=== PATIENT | female | born 1965 | race Hispanic/Latino ===

== ENCOUNTER 2019-07-11 13:37 | Inpatient (IN) | payer MEDICAID, OTHER ==
[~2019-07-11] VITALS: Ht 152.4 cm; Wt 55.5 kg
[2019-07-11] VITALS (10 sets, daily range): BP systolic 99–168; BP diastolic 47–83
[~2019-07-11 13:37] MED LIST: ETOMIDATE 2 MG/ML 10 ML VIAL IVP ONE; SUCCINYLCHOLINE CHLORIDE 20 MG/ML 10 ML VIAL IVP ONE
--- NOTE | 2019-07-11 15:13 | NUR ---
ARRIVAL TO FLOOR ROOM 409/ DIRECT SUPPORT PROFESSIONAL AWARE OF PT ARRIVAL. PT IS AAOX3 DENIES CP DENIES SOB. ARRIVED WITH HEPARIN INFUSING, 12UNITS/55KG = 6.6ML/HR. PT SIGNED CONSENT FOR [facility]. NOTED COMMUNICATING/TUNNELING SACRAL WOUND, PICTURES TAKEN. AWAITING DIRECT SUPPORT PROFESSIONAL FOR GRAPE CRUSHER.
--- NOTE | 2019-07-11 16:00 | NUR ---
MESSAGE SENT TO DR AVILA OF PT ADMISSION TO ROOM
[2019-07-11] MEDS ORDERED: HYDR-3420 PO (16:29)
[2019-07-11] MEDS ORDERED: ATOR10 PO (16:29)
[2019-07-11] MEDS ORDERED: CARV12.511 PO (16:29)
[2019-07-11] MEDS ORDERED: AEC81 PO (16:29)
[2019-07-11] MEDS ORDERED: FURO40TA5 PO (16:29)
[2019-07-11] MEDS ORDERED: CHOL200012 PO (16:29)
[2019-07-11] MEDS ORDERED: SPIR25TA6 PO (16:33)
[2019-07-11] MEDS ORDERED: LISI10TA7 PO (16:33)
[2019-07-11] MEDS ORDERED: LACT1CAP62 PO (16:33)
[2019-07-11] MEDS ORDERED: IOHEXOL 350 MG/ML 100ML INFUS..BTL IV ONE (17:15)
[2019-07-11] MEDS ORDERED: MIDAZOLAM HCL 1 MG/ML 2ML VIAL ONE (17:15)
[2019-07-11] MEDS ORDERED: NITROGLYCERIN 2 MG/VIAL VIAL IV ONE (17:15)
[2019-07-11] MEDS ORDERED: IOHEXOL-350 50ML VIAL IV ONE (17:15)
[2019-07-11] MEDS ORDERED: LIDOCAINE HCL 2% 20ML ONE (17:15)
[2019-07-11] MEDS ORDERED: BIVALIRUDIN 250 MG/VIAL IV ONE (17:19)
--- NOTE | 2019-07-11 17:30 | NUR ---
Osiel WEIR ON FLOOR I TOLD HER PT IS IN ROOM ARRIVAL FROM [facility]
--- NOTE | 2019-07-11 17:42 | NUR ---
DOWN VIA BED TO CUSTOMER ENGINEERING SPECIALIST WITH CUSTOMER ENGINEERING SPECIALIST STAFF
--- NOTE | 2019-07-11 18:07 | NUR ---
HOSPITALIST SERVICE MADE AWARE OF PATIENT ADMISSION, SPOKE WITH CHIO
[2019-07-11] MEDS ORDERED: EPTIFIBATIDE 2 MG/ML 10 ML VIAL IVP ONE (19:03)
[2019-07-11] MEDS ORDERED: ASPIRIN 325MG EC TAB 325 MG TABLET.DR PO ONE (19:04)
[2019-07-11] MEDS ORDERED: PRASUGREL HCL 10 MG TABLET ONE (19:04)
[2019-07-11] MEDS ORDERED: EPTIFIBATIDE 75MG/100ML BOTTLE 100 ML IV ONE (19:10)
[2019-07-11] MEDS ORDERED: SODIUM CHLORIDE 0.9% 1000ML 1,000 ML IV SCH (19:41)
[2019-07-11] MEDS ORDERED: DEXTROSE 50%-WATER 50 ML DISP.SYRIN IV PRN (19:45)
[2019-07-11] MEDS ORDERED: ONDANSETRON HCL 4 MG/2 ML VIAL ONE (19:49)
[2019-07-11] MEDS ORDERED: CARVEDILOL 12.5 MG TABLET PO SCH (21:00)
[2019-07-11] MEDS: INSULIN HUMULIN R 100 UNIT/ML 3ML SQ SCH (21:00)
[2019-07-11] MEDS: HYDRALAZINE HCL 25 MG TABLET PO SCH (21:00)
[2019-07-12] VITALS (15 sets, daily range): BP systolic 121–168; BP diastolic 62–95
[2019-07-12] MEDS: ATORVASTATIN CALCIUM 40 MG TABLET PO SCH ×2 (00:31→22:12)
[2019-07-12] MEDS: HYDRALAZINE HCL 25 MG TABLET PO SCH ×4 (00:32→22:13)
[2019-07-12] MEDS: ONDANSETRON HCL 4 MG/2 ML VIAL IVP PRN ×3 (00:32→22:23)
--- NOTE | 2019-07-12 01:00 | NUR ---
PT C/O CHEST PAIN. NOTIFIED HOSPITALIST SYSTEMS TESTING LABORATORY TECHNICIAN. NEW ORDERS FOR STATE EKG. CARDIAC PANEL. NITRO SL. AND MORPHINE 2MG Q6HRS PRN.
[2019-07-12] MEDS ORDERED: NITROGLYCERIN 0.4 MG SL TAB SL ONE (01:08)
[2019-07-12] MEDS ORDERED: MORPHINE SULFATE 2 MG/ML 1ML SYG ONE (01:09)
--- NOTE | 2019-07-12 01:10 | NUR ---
AT THIS TIME GIVEN NITRO SL AND MORPHINE 2MG PRN. DUE TO CHEST PAIN
[2019-07-12] MEDS ORDERED: NITROGLYCERIN 0.4 MG SL TAB SL PRN (01:15)
[2019-07-12 01:28] LABS: HEMATOCRIT 25.8 % (36-48); MEAN CORPUSCULAR VOLUME 87.2 fL (79-99); PLATELET COUNT (AUTO) 344 K/uL (130-400); RED BLOOD CELL COUNT(AUTO) 2.96 MIL/uL (4.00-5.50); RED CELL DISTRIBUTION WIDTH 20.7 % (11.0-15.5); WHITE BLOOD COUNT (AUTO) 14.9 K/uL (4.8-10.8)
[2019-07-12 01:37] LABS: CREATININE 1.3 mg/dL (0.5-1.5); POTASSIUM 3.7 mmol/L (3.5-5.1)
[2019-07-12 01:42] LABS: INR 1.36 (0.85-1.15); PARTIAL THROMBOPLASTIN TIME 39.4 SEC (26.3-35.5); PROTHROMBIN TIME 14.5 SEC (9.6-11.6)
[2019-07-12 02:03] LABS: B-TYPE NATRIURETIC PEPTIDE 4990 pg/mL (0-100); TROPONIN I 1.86 ng/mL (0.00-0.06)
--- NOTE | 2019-07-12 02:15 | NUR ---
NOTIFIED CHIO LEDESMA REGARDING TROP LEVEL OF 1.86 AND PT IS NO LONGER COMPLAINING OF CHEST PAIN. NEW ORDER FOR TROPS Q6HRS X3. PT CURRENTLY IN BED, EYES CLOSED. NO DISTRESS NOTED.
[2019-07-12] MEDS: INSULIN HUMULIN R 100 UNIT/ML 3ML SQ SCH ×4 (07:16→21:00)
[2019-07-12 08:02] LABS: TROPONIN I 1.98 ng/mL (0.00-0.06)
--- NOTE | 2019-07-12 08:19 | NUR ---
DR. LOPEZ MADE AWARE OF PENDING CONSULT
[2019-07-12] MEDS ORDERED: FUROSEMIDE 40 MG TABLET PO SCH (09:00)
[2019-07-12] MEDS ORDERED: FUROSEMIDE 10 MG/ML 4ML VIAL IV SCH (09:00)
[2019-07-12] MEDS ORDERED: LISINOPRIL 10 MG TABLET PO SCH ×2 (09:00)
[2019-07-12] MEDS: LISINOPRIL 20 MG TABLET PO SCH (09:28)
[2019-07-12] MEDS: ASPIRIN 81MG TAB.CHEW PO SCH (09:29)
[2019-07-12] MEDS: PRASUGREL HCL 10 MG TABLET PO SCH (09:29)
[2019-07-12] MEDS: PANTOPRAZOLE SODIUM 40 MG TABLET.DR PO SCH (09:29)
--- NOTE | 2019-07-12 11:03 | NUR ---
RD NOTIFICATION - NON HEALING PRESSURE ULCER Pt admitted for N Stemi. History of CHF, CKDIII, DM, CAD. 75gm CC diet order in place. No report of GI distress. Pt is s/p thoracentesis, s/p L-heart cath, as per EMR. Pt with Stg 3 R-Buttock Pressure ulcer. 1) Recommend Heart healthy Diet modification 2) Recommend 1500mL Fluid Restriction 3) Recommend Chapo BID, 500mg Ascorbic Acid, 220mG Zinc Sulfate for wound healing support 4) 60mL Promod QD secondary to increased protein needs RD to continue to monitor. Please notify as additional nutrition concerns arise. Thank you. Addendum: 07/12/19 at [address] RD Amended: Links added.
[2019-07-12] MEDS: MORPHINE SULFATE 2 MG/ML 1ML SYG IVP PRN (12:40)
--- NOTE | 2019-07-12 13:28 | NUR ---
[facility] consult Patient assessed as ordered. Patient reports ulcer occurred shortly after left hip surgery about 4 weeks ago. Surgical consult recommended and wound care recommendations submitted. Addendum: 07/12/19 at 1330 by ADRIANA GONZALEZ RN/ZEINA Amended: Links added.
[2019-07-12] MEDS ORDERED: VANCOMYCIN PROTOCOL PER PHARMACY IV PRN (16:00)
[2019-07-12] MEDS ORDERED: VANCOMYCIN 1GM+NS 250ML 250 ML IV SCH (16:00)
[2019-07-12] MEDS ORDERED: VANCOMYCIN 500MG+NS 100ML 100 ML IV SCH (16:30)
[2019-07-12 16:37] LABS: RETICULOCYTE % (AUTO) 1.88 % (0.42-2.23)
[2019-07-12 16:52] LABS: % IRON SATURATION 15.5 % (22-44)
[2019-07-12] MEDS ORDERED: DILTIAZEM HCL 120 MG CAP.SR.24H PO SCH (17:15)
[2019-07-12] MEDS ORDERED: TAMSULOSIN HCL 0.4 MG CAP.ER.24H PO SCH (17:15)
[2019-07-12] MEDS ORDERED: EPOETIN ALFA 10,000 UNIT/ML VIAL SQ SCH (17:15)
[2019-07-12 17:20] LABS: THYROID STIMULATING HORMONE 1.67 uIU/mL (0.36-3.74)
[2019-07-12] MEDS ORDERED: COMPOUND IV MISC 1 EACH IVSOLN MISC PRN (17:30)
[2019-07-12] MEDS: IRON SUCROSE COMPLEX 100 MG in SODIUM CHLORIDE 0.9% 50 ML IV SCH (18:26)
[2019-07-12] MEDS: MEROPENEM 500 MG VIAL IV SCH (18:26)
[2019-07-12] MEDS ORDERED: VANCOMYCIN 1GM+NS 250ML 250 ML IV ONE (21:46)
--- NOTE | 2019-07-12 21:49 | NUR ---
PICC LINE NOT INSERETED BECAUSE PATIENT IS ON PROCRIT AND WILL DEVELOPED A CLOT Addendum: 07/12/19 at 2153 by AHMET ESTES RN PICC LINE NOT INSERTED BECAUSE PATIENT IS ON PROCRIT AND WILL DEVELOPED A CLOT
[2019-07-12] MEDS: CARVEDILOL 25 MG TABLET PO SCH (22:12)
[2019-07-13] VITALS (7 sets, daily range): BP systolic 134–154; BP diastolic 51–84
[2019-07-13] MEDS ORDERED: VANCOMYCIN 1GM+NS 250ML 250 ML IV ONE (01:05)
[2019-07-13] MEDS: MEROPENEM 500 MG VIAL IV SCH ×2 (01:11→09:15)
[2019-07-13 07:04] LABS: BASOPHILS % (AUTO) 0.2 % (0.0-5.0); HEMATOCRIT 26.6 % (36-48); LYMPHOCYTES % (AUTO) 14.3 % (21.0-51.0); MEAN CORPUSCULAR HEMOGLOBIN 26.9 pg (27.0-33.0); MEAN CORPUSCULAR HGB CONC 31.2 g/dL (32.0-36.0); MEAN CORPUSCULAR VOLUME 86.4 fL (79-99); MONOCYTES % (AUTO) 5.4 % (3.0-13.0); NEUTROPHILS % (AUTO) 77.6 % (40.0-77.0); PLATELET COUNT (AUTO) 298 K/uL (130-400); RED BLOOD CELL COUNT(AUTO) 3.08 MIL/uL (4.00-5.50); RED CELL DISTRIBUTION WIDTH 21.2 % (11.0-15.5); WHITE BLOOD COUNT (AUTO) 11.3 K/uL (4.8-10.8)
[2019-07-13] MEDS: INSULIN HUMULIN R 100 UNIT/ML 3ML SQ SCH ×3 (07:22→21:00)
[2019-07-13 07:33] LABS: ALBUMIN 1.7 g/dL (3.5-5.0); BILIRUBIN,TOTAL 0.4 mg/dL (0.2-1.0); CREATININE 1.8 mg/dL (0.5-1.5); CRP QUANTITATIVE 130.5 mg/L (0.00-9.0); MAGNESIUM 2.1 mg/dL (1.80-2.40); PHOSPHORUS 4.8 mg/dL (2.5-4.9); POTASSIUM 3.5 mmol/L (3.5-5.1); TOTAL PROTEIN, SERUM 5.8 g/dL (6.0-8.3)
[2019-07-13 08:09] LABS: ERYTHROCYTE SEDIMENTATION RATE 65 MM/HR (0-30)
[2019-07-13] MEDS: IRON SUCROSE COMPLEX 100 MG in SODIUM CHLORIDE 0.9% 50 ML IV SCH (09:14)
[2019-07-13] MEDS: ASPIRIN 81MG TAB.CHEW PO SCH (09:14)
[2019-07-13] MEDS: ONDANSETRON HCL 4 MG/2 ML VIAL IVP PRN (09:14)
[2019-07-13] MEDS: CARVEDILOL 25 MG TABLET PO SCH ×2 (09:14→21:09)
[2019-07-13] MEDS: FUROSEMIDE 40 MG TABLET PO SCH (09:15)
[2019-07-13] MEDS: HYDRALAZINE HCL 25 MG TABLET PO SCH ×3 (09:15→21:09)
[2019-07-13] MEDS: LISINOPRIL 20 MG TABLET PO SCH (09:15)
[2019-07-13] MEDS: PANTOPRAZOLE SODIUM 40 MG TABLET.DR PO SCH (09:15)
[2019-07-13] MEDS: MORPHINE SULFATE 2 MG/ML 1ML SYG IVP PRN (09:16)
[2019-07-13] MEDS: SODIUM HYPOCHLORITE 0.25% [HALF STRENGTH] 473 ML TOPICAL SOLN TP SCH (09:17)
[2019-07-13] MEDS: PRASUGREL HCL 10 MG TABLET PO SCH (09:19)
[2019-07-13] MEDS: VANCOMYCIN 500MG+NS 100ML 100 ML IV SCH (13:23)
--- NOTE | 2019-07-13 18:30 | NUR ---
austin note met with patient and resides with son kaelyn and daughter in law, is currently not able to ambulate , has walker and cane but hardly uses. needs assistance, and daughter in law asists. is pending approval for [facility] coverage for assistance. was at [facility] and had 2 surgeries. and was transferred to this facililty. dc plan is back to home at mo. family to assist. provided with community resource packet, and rx assist cards. Addendum: 07/13/19 at 1901 by AASHISH CROUCH CM Amended: Links added.
[2019-07-13] MEDS: ATORVASTATIN CALCIUM 40 MG TABLET PO SCH (21:08)
[2019-07-14] MEDS: MEROPENEM 500 MG VIAL IV SCH ×2 (01:00→08:47)
[2019-07-14] MEDS: VANCOMYCIN 500MG+NS 100ML 100 ML IV SCH (01:01)
[2019-07-14 04:00] VITALS: BP 145/56
[2019-07-14 05:11] LABS: BASOPHILS % (AUTO) 0.3 % (0.0-5.0); EOSINOPHILS % (AUTO) 13.7 % (0.0-8.0); HEMATOCRIT 26.5 % (36-48); LYMPHOCYTES % (AUTO) 17.4 % (21.0-51.0); MEAN CORPUSCULAR HEMOGLOBIN 26.9 pg (27.0-33.0); MEAN CORPUSCULAR HGB CONC 31.3 g/dL (32.0-36.0); NEUTROPHILS % (AUTO) 61.1 % (40.0-77.0); PLATELET COUNT (AUTO) 309 K/uL (130-400); RED BLOOD CELL COUNT(AUTO) 3.08 MIL/uL (4.00-5.50); RED CELL DISTRIBUTION WIDTH 21.2 % (11.0-15.5); WHITE BLOOD COUNT (AUTO) 12.7 K/uL (4.8-10.8)
[2019-07-14 06:08] LABS: ALBUMIN 1.5 g/dL (3.5-5.0); ASPARTATE AMINOTRANSFERASE 14 U/L (10-37); BILIRUBIN,TOTAL 0.3 mg/dL (0.2-1.0); CARBON DIOXIDE 23 mmol/L (21-32); CHLORIDE 109 mmol/L (101-111); CREATININE 2.1 mg/dL (0.5-1.5); GLOMERULAR FILTR. RATE CALC 26 mL/min (>60); GLUCOSE,RANDOM 59 mg/dL (70-105); POTASSIUM 3.2 mmol/L (3.5-5.1); SODIUM SERUM 143 mmol/L (136-145); TOTAL PROTEIN, SERUM 5.4 g/dL (6.0-8.3); UREA NITROGEN, BLOOD 36 mg/dL (7-18)
[2019-07-14 06:10] LABS: ALANINE AMINOTRANSFERASE < 6 U/L (12-78)
[2019-07-14] MEDS: INSULIN HUMULIN R 100 UNIT/ML 3ML SQ SCH ×4 (06:40→21:00)
[2019-07-14 07:30] VITALS: BP 131/62
[2019-07-14 08:43] LABS: CREATINE KINASE, TOTAL 16 U/L (21-232); MYOGLOBIN 55 ng/mL (10-92)
[2019-07-14] MEDS: HYDRALAZINE HCL 25 MG TABLET PO SCH ×3 (08:46→21:24)
[2019-07-14] MEDS: LISINOPRIL 20 MG TABLET PO SCH (08:46)
[2019-07-14] MEDS: IRON SUCROSE COMPLEX 100 MG in SODIUM CHLORIDE 0.9% 50 ML IV SCH (08:46)
[2019-07-14] MEDS: PRASUGREL HCL 10 MG TABLET PO SCH (08:46)
[2019-07-14] MEDS: ASPIRIN 81MG TAB.CHEW PO SCH (08:47)
[2019-07-14] MEDS: PANTOPRAZOLE SODIUM 40 MG TABLET.DR PO SCH (08:47)
[2019-07-14] MEDS: FUROSEMIDE 40 MG TABLET PO SCH (08:47)
[2019-07-14] MEDS: CARVEDILOL 25 MG TABLET PO SCH ×2 (09:00→21:23)
[2019-07-14 11:30] VITALS: BP 124/67
[2019-07-14] MEDS: ZOSYN 3.375GM+NS 50ML 50 ML IV SCH ×2 (12:09→18:14)
[2019-07-14] MEDS: SODIUM HYPOCHLORITE 0.25% [HALF STRENGTH] 473 ML TOPICAL SOLN TP SCH (12:10)
[2019-07-14 15:30] VITALS: BP 145/61
[2019-07-14 20:21] VITALS: BP 146/69
[2019-07-14] MEDS: ATORVASTATIN CALCIUM 40 MG TABLET PO SCH (21:23)
[2019-07-14] MEDS: MORPHINE SULFATE 2 MG/ML 1ML SYG IVP PRN (21:31)
[2019-07-14 23:26] VITALS: BP 143/63
[2019-07-15] MEDS: ZOSYN 3.375GM+NS 50ML 50 ML IV SCH ×3 (01:47→18:32)
[2019-07-15 03:31] VITALS: BP 134/53
[2019-07-15 05:46] LABS: BASOPHILS % (AUTO) 0.3 % (0.0-5.0); EOSINOPHILS % (AUTO) 15.8 % (0.0-8.0); HEMATOCRIT 25.6 % (36-48); LYMPHOCYTES % (AUTO) 15.5 % (21.0-51.0); MEAN CORPUSCULAR HEMOGLOBIN 26.8 pg (27.0-33.0); MEAN CORPUSCULAR HGB CONC 31.3 g/dL (32.0-36.0); MEAN CORPUSCULAR VOLUME 85.9 fL (79-99); MONOCYTES % (AUTO) 6.1 % (3.0-13.0); NEUTROPHILS % (AUTO) 61.8 % (40.0-77.0); NUCLEATED RED BLOOD CELLS 0.2 % (0.0-0.19); PLATELET COUNT (AUTO) 309 K/uL (130-400); RED BLOOD CELL COUNT(AUTO) 2.98 MIL/uL (4.00-5.50); WHITE BLOOD COUNT (AUTO) 12.3 K/uL (4.8-10.8)
[2019-07-15 06:05] LABS: ALBUMIN 1.5 g/dL (3.5-5.0); ASPARTATE AMINOTRANSFERASE 13 U/L (10-37); BILIRUBIN,TOTAL 0.3 mg/dL (0.2-1.0); CARBON DIOXIDE 24 mmol/L (21-32); CHLORIDE 106 mmol/L (101-111); CREATININE 2.4 mg/dL (0.5-1.5); GLOMERULAR FILTR. RATE CALC 22 mL/min (>60); GLUCOSE,RANDOM 100 mg/dL (70-105); POTASSIUM 3.5 mmol/L (3.5-5.1); SODIUM SERUM 140 mmol/L (136-145); TOTAL PROTEIN, SERUM 5.3 g/dL (6.0-8.3); UREA NITROGEN, BLOOD 38 mg/dL (7-18)
[2019-07-15 06:07] LABS: ALANINE AMINOTRANSFERASE < 6 U/L (12-78)
[2019-07-15] MEDS: INSULIN HUMULIN R 100 UNIT/ML 3ML SQ SCH ×4 (06:41→20:52)
[2019-07-15 07:55] VITALS: BP 140/61
[2019-07-15] MEDS: SODIUM HYPOCHLORITE 0.25% [HALF STRENGTH] 473 ML TOPICAL SOLN TP SCH (09:00)
[2019-07-15] MEDS: LISINOPRIL 20 MG TABLET PO SCH (09:54)
[2019-07-15] MEDS: PRASUGREL HCL 10 MG TABLET PO SCH (09:54)
[2019-07-15] MEDS: ASPIRIN 81MG TAB.CHEW PO SCH (09:54)
[2019-07-15] MEDS: PANTOPRAZOLE SODIUM 40 MG TABLET.DR PO SCH (09:54)
[2019-07-15] MEDS: HYDRALAZINE HCL 25 MG TABLET PO SCH ×3 (09:54→21:05)
[2019-07-15] MEDS: FUROSEMIDE 40 MG TABLET PO SCH (09:55)
[2019-07-15] MEDS: CARVEDILOL 25 MG TABLET PO SCH ×2 (09:55→21:05)
[2019-07-15] MEDS: IRON SUCROSE COMPLEX 100 MG in SODIUM CHLORIDE 0.9% 50 ML IV SCH (09:57)
[2019-07-15 11:22] VITALS: BP 136/68
[2019-07-15] MEDS: ONDANSETRON HCL 4 MG/2 ML VIAL IVP PRN (16:36)
[2019-07-15 17:11] VITALS: BP 153/57
[2019-07-15] MEDS: MORPHINE SULFATE 2 MG/ML 1ML SYG IVP PRN (18:35)
[2019-07-15 19:00] VITALS: BP 146/66
[2019-07-15] MEDS: ATORVASTATIN CALCIUM 40 MG TABLET PO SCH (21:04)
[2019-07-16 00:04] VITALS: BP 139/59
[2019-07-16 04:08] VITALS: BP 112/52
[2019-07-16] MEDS: ZOSYN 3.375GM+NS 50ML 50 ML IV SCH ×3 (04:17→17:51)
[2019-07-16] MEDS: MORPHINE SULFATE 2 MG/ML 1ML SYG IVP PRN (05:14)
[2019-07-16] MEDS: INSULIN HUMULIN R 100 UNIT/ML 3ML SQ SCH ×4 (05:26→20:12)
[2019-07-16 05:59] LABS: BASOPHILS % (AUTO) 0.3 % (0.0-5.0); EOSINOPHILS % (AUTO) 12.8 % (0.0-8.0); HEMATOCRIT 24.5 % (36-48); MEAN CORPUSCULAR HEMOGLOBIN 26.9 pg (27.0-33.0); MEAN CORPUSCULAR HGB CONC 31.4 g/dL (32.0-36.0); MEAN CORPUSCULAR VOLUME 85.7 fL (79-99); MONOCYTES % (AUTO) 6.5 % (3.0-13.0); NEUTROPHILS % (AUTO) 60.9 % (40.0-77.0); NUCLEATED RED BLOOD CELLS 0.4 % (0.0-0.19); PLATELET COUNT (AUTO) 318 K/uL (130-400); RED BLOOD CELL COUNT(AUTO) 2.86 MIL/uL (4.00-5.50); RED CELL DISTRIBUTION WIDTH 21.1 % (11.0-15.5); WHITE BLOOD COUNT (AUTO) 10.7 K/uL (4.8-10.8)
[2019-07-16 06:29] LABS: ALBUMIN 1.5 g/dL (3.5-5.0); AMYLASE 112 U/L (25-115); ASPARTATE AMINOTRANSFERASE 13 U/L (10-37); BILIRUBIN,TOTAL 0.3 mg/dL (0.2-1.0); CARBON DIOXIDE 26 mmol/L (21-32); CHLORIDE 107 mmol/L (101-111); CREATININE 2.6 mg/dL (0.5-1.5); GLOMERULAR FILTR. RATE CALC 20 mL/min (>60); GLUCOSE,RANDOM 99 mg/dL (70-105); LIPASE 407 U/L (114-286); PHOSPHORUS 4.5 mg/dL (2.5-4.9); POTASSIUM 3.2 mmol/L (3.5-5.1); SODIUM SERUM 142 mmol/L (136-145); TOTAL PROTEIN, SERUM 5.4 g/dL (6.0-8.3); UREA NITROGEN, BLOOD 38 mg/dL (7-18)
[2019-07-16 06:32] LABS: ALANINE AMINOTRANSFERASE < 6 U/L (12-78)
[2019-07-16] MEDS: SODIUM HYPOCHLORITE 0.25% [HALF STRENGTH] 473 ML TOPICAL SOLN TP SCH (07:01)
[2019-07-16 07:29] VITALS: BP 154/63
--- NOTE | 2019-07-16 08:00 | NUR ---
STATUS AAOX3 DENIES CP DENIES SOB. NO COMPLAINTS THIS AM. NPO STATUS FOR POSSIBLE SACRAL DEBRIDEMENT. CALL LIGHT WITHIN REACH. DR ZAY NEGRO, STATES TO NOT HOLD EFFIENT OR ASA EVEN IF PT WILL HAVE SURGERY. EFFIENT AND ASA GIVEN WITH SMALL SIP OF WATER.
[2019-07-16] MEDS: PRASUGREL HCL 10 MG TABLET PO SCH (08:35)
[2019-07-16] MEDS: ASPIRIN 81MG TAB.CHEW PO SCH (08:36)
[2019-07-16] MEDS: IRON SUCROSE COMPLEX 100 MG in SODIUM CHLORIDE 0.9% 50 ML IV SCH (08:36)
[2019-07-16] MEDS: CARVEDILOL 25 MG TABLET PO SCH ×2 (09:00→20:17)
[2019-07-16] MEDS: PANTOPRAZOLE SODIUM 40 MG TABLET.DR PO SCH (09:00)
[2019-07-16] MEDS: HYDRALAZINE HCL 25 MG TABLET PO SCH ×3 (09:00→20:17)
[2019-07-16 11:23] VITALS: BP 148/56
--- NOTE | 2019-07-16 14:05 | NUR ---
RD FOLLOW UP Pt NPO pending US, pending debridement. Pt previous diet order of 75gm CCD, Heart Healthy. Noted Pt with N/V, cholelithiasis on 07/14 as per EMR. Pt with Sacral ulcer. Pt with altered renal lab values. Recommend to resume HH, 75gm CC, Renal non-dialysis diet when medically feasible Recommend 60mL ProMod BID Recommend Chapo BID, 500mg Vit C (QD), 220mg ZnSO4 (QD) for wound healing support RD to continue to monitor. Please notify as additional nutrition concerns arise. Thank you. Addendum: 07/16/19 at [address] RD Amended: Links added.
[2019-07-16 15:32] VITALS: BP 110/52
[2019-07-16 19:39] VITALS: BP 139/59
[2019-07-16] MEDS: ATORVASTATIN CALCIUM 40 MG TABLET PO SCH (20:16)
[2019-07-17] VITALS (7 sets, daily range): BP systolic 140–160; BP diastolic 52–71
[2019-07-17] MEDS: ZOSYN 3.375GM+NS 50ML 50 ML IV SCH (04:01)
[2019-07-17] MEDS ORDERED: LIDOCAINE 1%-EPI 1:100,000 20 ML VIAL IJ SCH (07:30)
--- NOTE | 2019-07-17 07:45 | NUR ---
AM ASSESSMENT PT LAYING IN BED, RESTING. A/O X 3. SPA SPEAKING ONLY. NO SOB. NO DISTRESS NOTED. O2 NC @ 2L. DENIES CHEST PAIN OR DISCOMFORT. DENIES PALPITATIONS. TELE: SR. DENIES N/V AND/OR DIARRHEA. NPO STATUS REINFORCED. PT TO HAVE I&D OF SACRUM @ BEDSIDE BY DR POLANCO TODAY. UP W/ASSISTANCE. INSTRUCTED TO CALL FOR ASSISTANCE. CALL NAHUM W/IN REACH.
[2019-07-17] MEDS: CARVEDILOL 25 MG TABLET PO SCH ×2 (09:00→20:58)
[2019-07-17] MEDS: PRASUGREL HCL 10 MG TABLET PO SCH (09:00)
[2019-07-17] MEDS: ASPIRIN 81MG TAB.CHEW PO SCH (09:00)
[2019-07-17] MEDS: HYDRALAZINE HCL 25 MG TABLET PO SCH ×3 (09:00→20:58)
[2019-07-17] MEDS: SODIUM HYPOCHLORITE 0.25% [HALF STRENGTH] 473 ML TOPICAL SOLN TP SCH (09:00)
[2019-07-17] MEDS: PANTOPRAZOLE SODIUM 40 MG TABLET.DR PO SCH (09:00)
[2019-07-17] MEDS: IRON SUCROSE COMPLEX 100 MG in SODIUM CHLORIDE 0.9% 50 ML IV SCH (09:03)
[2019-07-17] MEDS: INSULIN HUMULIN R 100 UNIT/ML 3ML SQ SCH ×3 (11:30→21:00)
[2019-07-17] MEDS ORDERED: METRONIDAZOLE 500 MG TABLET PO SCH (12:30)
[2019-07-17] MEDS ORDERED: ZOSYN 3.375GM+NS 50ML 50 ML IV SCH (13:00)
[2019-07-17] MEDS ORDERED: LEVOFLOXACIN 500 MG TABLET PO SCH (13:29)
[2019-07-17] MEDS: METRONIDAZOLE 500 MG TABLET PO SCH ×2 (14:00→21:03)
--- NOTE | 2019-07-17 16:03 | NUR ---
HYPOGLYCEMIA @ 1534 GLUCOSE 55. 1 AMP OF D50 GIVEN. GLUCOSE RECHECK 142.
--- NOTE | 2019-07-17 19:26 | NUR ---
1030 transfer request for continuity of care once bed side debridement completed 1135 transfer initiated to [facility] at [facility] . Dr Queen made aware to contact Dr Sherry Fitch at [phone]. [address] queen report given . 1900 pt still pending the debridement report to incoming hs. Srinivasan jaime
--- NOTE | 2019-07-17 20:23 | NUR ---
AM MEDICATIONS NOT GIVEN, NOR CHARTED ON. CANNOT ADMINISTERED DUE THAT THE TIME OF ADMINISTRATION IS PAST DUE
[2019-07-17] MEDS: ATORVASTATIN CALCIUM 40 MG TABLET PO SCH (20:58)
[2019-07-17] MEDS: MORPHINE SULFATE 2 MG/ML 1ML SYG IVP PRN (20:58)
[2019-07-18] VITALS (19 sets, daily range): BP systolic 102–180; BP diastolic 50–104
--- NOTE | 2019-07-18 06:00 | NUR ---
CODE BLUE CALLED TELE
--- NOTE | 2019-07-18 06:08 | NUR ---
CODE BLUE 06:05 COMPRESSIO STARTED BOARD UNDERNEATH PATIENT, COMPRESSIONS STARTED , BAGGING STARTED BY MECHE, 06:08 1ST DOSE OF EPI GIVEN 6:13 PT'S PULSE IN THE 60'S PEA 06:14 2nd dose of epi given 06:17 1st amp of bicarb given pt's sugar 151 06:18 3rd dose of epi given 06:25 amp of biarb given pts achieved [facility] dr spoke with dr. queen via telephone labs drawnd and chest x ray performed PT's contact information as per face sheet called no answered voice mails were left
[2019-07-18 06:23] LABS: ABG BASE EXCESS -9.8 mmol/L (-2.0-3.0); ABG HCO3 21.7 mmol/L (21.0-28.0); ABG OXYGEN SATURATION 88.9 % (95.0-99.0); ABG PCO2 88 mmHg (32-45)
[2019-07-18 06:25] LABS: HEMATOCRIT 26.9 % (36-48); MEAN CORPUSCULAR HEMOGLOBIN 26.7 pg (27.0-33.0); MEAN CORPUSCULAR HGB CONC 29.7 g/dL (32.0-36.0); MEAN CORPUSCULAR VOLUME 89.7 fL (79-99); NUCLEATED RED BLOOD CELLS 0.4 % (0.0-0.19); RED CELL DISTRIBUTION WIDTH 21.4 % (11.0-15.5); WHITE BLOOD COUNT (AUTO) 20.1 K/uL (4.8-10.8)
[2019-07-18 06:36] LABS: CREATININE 2.6 mg/dL (0.5-1.5); POTASSIUM 5.1 mmol/L (3.5-5.1)
[2019-07-18] MEDS ORDERED: PROPOFOL 1000 MG/100 ML IV PRN (06:45)
[2019-07-18 06:51] LABS: MAGNESIUM 2.5 mg/dL (1.80-2.40); PHOSPHORUS 4.4 mg/dL (2.5-4.9); TROPONIN I 0.42 ng/mL (0.00-0.06)
--- NOTE | 2019-07-18 07:00 | NUR ---
DR. AVILA AWARE OF PT'S ABG'S AND PT'S STATUS TRANSFER TO ICU
[2019-07-18] MEDS ORDERED: PROPOFOL 1000 MG/100 ML 100 ML IV PRN (07:30)
[2019-07-18] MEDS: INSULIN HUMULIN R 100 UNIT/ML 3ML SQ SCH ×4 (07:30→20:58)
--- NOTE | 2019-07-18 07:35 | NUR ---
FULL REPORT GIVEN TO LUCIANA ETIENNE
[2019-07-18 08:39] LABS: ABG BASE EXCESS 4.5 mmol/L (-2.0-3.0); ABG HCO3 27.4 mmol/L (21.0-28.0); ABG OXYGEN SATURATION 99.8 % (95.0-99.0); ABG PCO2 35 mmHg (32-45)
[2019-07-18] MEDS: CARVEDILOL 25 MG TABLET PO SCH (09:00)
[2019-07-18] MEDS: MORPHINE SULFATE 2 MG/ML 1ML SYG IVP PRN ×2 (11:36→17:57)
[2019-07-18] MEDS: LEVOFLOXACIN 500 MG TABLET PO SCH (11:39)
[2019-07-18] MEDS: HYDRALAZINE HCL 25 MG TABLET PO SCH (11:39)
[2019-07-18] MEDS: PRASUGREL HCL 10 MG TABLET PO SCH (11:40)
[2019-07-18] MEDS: ASPIRIN 81MG TAB.CHEW PO SCH (11:40)
[2019-07-18] MEDS: METRONIDAZOLE 500 MG TABLET PO SCH ×3 (11:41→21:42)
[2019-07-18] MEDS ORDERED: NICARDIPINE HCL 25 MG in SODIUM CHLORIDE 0.9% 240 ML IV SCH (14:00)
[2019-07-18] MEDS: PANTOPRAZOLE 40 MG/VIAL IVP SCH (15:45)
[2019-07-18] MEDS: DEXMEDETOMIDINE HCL 200 MCG in SODIUM CHLORIDE 0.9% 50 ML IV SCH ×3 (15:45→20:41)
[2019-07-18] MEDS: IRON SUCROSE COMPLEX 100 MG in SODIUM CHLORIDE 0.9% 50 ML IV SCH (15:48)
--- NOTE | 2019-07-18 17:31 | NUR ---
1500 transfer follow up per nurse pt still being work up pt will be going to ct scan and 2 echo pending. debridement completed. [facility] inform of upgrade to icu and pt still pending work up verbalized understanding . Srinivasan jaime
[2019-07-18] MEDS ORDERED: ENOXAPARIN SODIUM 60 MG/0.6 ML SQ SCH (18:00)
[2019-07-19] VITALS (27 sets, daily range): BP systolic 126–172; BP diastolic 53–76
[2019-07-19] MEDS: DEXMEDETOMIDINE HCL 200 MCG in SODIUM CHLORIDE 0.9% 50 ML IV SCH ×2 (00:51→06:22)
[2019-07-19 03:38] LABS: BASOPHILS % (AUTO) 0.3 % (0.0-5.0); HEMATOCRIT 27.1 % (36-48); LYMPHOCYTES % (AUTO) 16.1 % (21.0-51.0); MEAN CORPUSCULAR HEMOGLOBIN 26.5 pg (27.0-33.0); MEAN CORPUSCULAR HGB CONC 32.1 g/dL (32.0-36.0); MEAN CORPUSCULAR VOLUME 82.6 fL (79-99); MONOCYTES % (AUTO) 6.5 % (3.0-13.0); NEUTROPHILS % (AUTO) 72.2 % (40.0-77.0); NUCLEATED RED BLOOD CELLS 0.3 % (0.0-0.19); PLATELET COUNT (AUTO) 390 K/uL (130-400); RED BLOOD CELL COUNT(AUTO) 3.28 MIL/uL (4.00-5.50); RED CELL DISTRIBUTION WIDTH 21.2 % (11.0-15.5); WHITE BLOOD COUNT (AUTO) 11.5 K/uL (4.8-10.8)
[2019-07-19 03:55] LABS: ALBUMIN 1.4 g/dL (3.5-5.0); BILIRUBIN,TOTAL 0.5 mg/dL (0.2-1.0); MAGNESIUM 2.3 mg/dL (1.80-2.40); PHOSPHORUS 3.2 mg/dL (2.5-4.9); TOTAL PROTEIN, SERUM 5.6 g/dL (6.0-8.3)
[2019-07-19 03:58] LABS: POTASSIUM 2.8 mmol/L (3.5-5.1)
[2019-07-19 04:02] LABS: ABG BASE EXCESS 3.7 mmol/L (-2.0-3.0); ABG HCO3 23.9 mmol/L (21.0-28.0); ABG OXYGEN SATURATION 98.7 % (95.0-99.0); ABG PCO2 25 mmHg (32-45)
[2019-07-19] MEDS: METRONIDAZOLE 500 MG TABLET PO SCH ×3 (05:36→23:58)
[2019-07-19] MEDS: POTASSIUM CHLORIDE 10 MEQ/TAB.SA PO SCH (06:02)
[2019-07-19] MEDS: INSULIN HUMULIN R 100 UNIT/ML 3ML SQ SCH ×4 (06:03→21:00)
[2019-07-19] MEDS: PANTOPRAZOLE 40 MG/VIAL IVP SCH (08:14)
[2019-07-19] MEDS: IRON SUCROSE COMPLEX 100 MG in SODIUM CHLORIDE 0.9% 50 ML IV SCH (08:14)
[2019-07-19] MEDS: ASPIRIN 81MG TAB.CHEW PO SCH (08:15)
[2019-07-19] MEDS: PRASUGREL HCL 10 MG TABLET PO SCH (08:15)
--- NOTE | 2019-07-19 09:30 | NUR ---
PT IS AWAKE AND HAS BEEN ASSESSED AND PT IS ABLE TO ANSWER BY NODDING YES OR NO TO QUESTIONS.
--- NOTE | 2019-07-19 13:00 | NUR ---
DR. MILLER HERE AND ORDERS NOTED. PT WAS PLACED ON T-BAR PER DR. MILLER AND WAS EXTUBATED AFTER 15 MINUTES. WILL CONTINUE TO MONITOR THE SATURATIONS.
--- NOTE | 2019-07-19 13:55 | NUR ---
RD FOLLOW UP Pt s/p Code, intubated. Propofol discontinued. NGT for medication. RN unsure if Tube feeding will be required. Recommendations placed in chart for possible tube feeding. NPO x 3 days. Recs if TF: Continuous Vital AF 1.2 Initiated at 25mls/hr for first 5 hours Increase rate as tolerated by 5mL every 5 hours to goal Goal rate: 50mLs/hr to provide: 1440kcal, 90gm protein, 973mL free H2O Rec flushes: 100mL Q 6hrs. Rec if Pt is extubated: Adv diet as tolerated to Heart Healthy Diet. RD to continue to monitor. Please notify as additional nutrition concerns arise. Thank you. Addendum: 07/19/19 at [address]K [address] RD Amended: Links added.
[2019-07-19] MEDS ORDERED: NITROGLYCERIN 50 MG/D5% WATER 1 BOT ONE (17:57)
--- NOTE | 2019-07-19 18:00 | NUR ---
DR. AVILA HERE AND ASSESSED PT AND PT C/O CHEST PAIN AND SBP ELEVATED AND TRIDIL DRIP WAS STARTED.
[2019-07-19] MEDS ORDERED: NITROGLYCERIN 50 MG/D5% WATER 250 BOT IV SCH (18:15)
[2019-07-19] MEDS: ATORVASTATIN CALCIUM 20 MG TABLET PO SCH (21:06)
[2019-07-19] MEDS: CARVEDILOL 6.25 MG TABLET PO SCH (21:06)
[2019-07-20] VITALS (18 sets, daily range): BP systolic 122–176; BP diastolic 50–78
[2019-07-20 03:52] LABS: HEMATOCRIT 23.2 % (36-48); MEAN CORPUSCULAR HEMOGLOBIN 27.4 pg (27.0-33.0); MEAN CORPUSCULAR HGB CONC 31.9 g/dL (32.0-36.0); MEAN CORPUSCULAR VOLUME 85.9 fL (79-99); NUCLEATED RED BLOOD CELLS 0.2 % (0.0-0.19); PLATELET COUNT (AUTO) 377 K/uL (130-400); RED CELL DISTRIBUTION WIDTH 21.3 % (11.0-15.5); WHITE BLOOD COUNT (AUTO) 9.8 K/uL (4.8-10.8)
[2019-07-20 04:00] LABS: ABG BASE EXCESS 3.4 mmol/L (-2.0-3.0); ABG HCO3 26.6 mmol/L (21.0-28.0); ABG OXYGEN SATURATION 96.2 % (95.0-99.0); ABG PCO2 36 mmHg (32-45)
[2019-07-20 04:12] LABS: ALBUMIN 1.4 g/dL (3.5-5.0); BILIRUBIN,TOTAL 0.4 mg/dL (0.2-1.0); TOTAL PROTEIN, SERUM 5.1 g/dL (6.0-8.3)
[2019-07-20] MEDS ORDERED: TRAMADOL HCL 50 MG TABLET ONE (04:51)
[2019-07-20] MEDS ORDERED: TRAMADOL HCL 50 MG TABLET PO ONE (05:00)
[2019-07-20] MEDS: POTASSIUM CHLORIDE 10 MEQ/TAB.SA PO SCH (06:18)
[2019-07-20] MEDS: METRONIDAZOLE 500 MG TABLET PO SCH ×3 (06:18→21:48)
[2019-07-20] MEDS: INSULIN HUMULIN R 100 UNIT/ML 3ML SQ SCH ×4 (06:27→21:00)
[2019-07-20] MEDS: PANTOPRAZOLE 40 MG/VIAL IVP SCH (08:47)
[2019-07-20] MEDS: LEVOFLOXACIN 500 MG TABLET PO SCH (08:47)
[2019-07-20] MEDS: IRON SUCROSE COMPLEX 100 MG in SODIUM CHLORIDE 0.9% 50 ML IV SCH (08:47)
[2019-07-20] MEDS: PRASUGREL HCL 10 MG TABLET PO SCH (08:47)
[2019-07-20] MEDS: CARVEDILOL 6.25 MG TABLET PO SCH ×2 (08:48→21:49)
[2019-07-20] MEDS: ASPIRIN 81MG TAB.CHEW PO SCH (08:50)
--- NOTE | 2019-07-20 13:30 | NUR ---
PT'S SACRAL DRESSING WAS CHANGED PER ORDERS.
--- NOTE | 2019-07-20 14:15 | NUR ---
PT'S SACRAL DRESSING WAS CHANGED AND DR. NESBITT HERE AND ASKING ABOUT A WOUND VAC. NO ORDER FOR ONE
--- NOTE | 2019-07-20 16:30 | NUR ---
DR. MILLER HERE AND ORDERS NOTED.
[2019-07-20] MEDS: ATORVASTATIN CALCIUM 20 MG TABLET PO SCH (21:49)
[2019-07-21] VITALS (19 sets, daily range): BP systolic 124–168; BP diastolic 48–66
[2019-07-21] MEDS: POTASSIUM CHLORIDE 10 MEQ/TAB.SA PO SCH ×2 (05:34→10:06)
[2019-07-21] MEDS: METRONIDAZOLE 500 MG TABLET PO SCH ×3 (05:34→22:57)
[2019-07-21] MEDS: INSULIN HUMULIN R 100 UNIT/ML 3ML SQ SCH ×4 (06:36→21:00)
[2019-07-21] MEDS: CARVEDILOL 6.25 MG TABLET PO SCH ×2 (08:32→21:30)
[2019-07-21] MEDS: PRASUGREL HCL 10 MG TABLET PO SCH (08:32)
[2019-07-21] MEDS: ASPIRIN 81MG TAB.CHEW PO SCH (08:32)
[2019-07-21] MEDS: PANTOPRAZOLE SODIUM 40 MG TABLET.DR PO SCH (08:32)
[2019-07-21] MEDS: IRON SUCROSE COMPLEX 100 MG in SODIUM CHLORIDE 0.9% 50 ML IV SCH (08:35)
--- NOTE | 2019-07-21 08:49 | NUR ---
TRANSFER PLACED A CALL TO [facility] TO INITIATE THE TRANSFER, SPOKE WITH DAVID AUGUSTIN RN HS, SHE STATED SHE DOES NOT HAVE BEDS BUT FAX HER PERTINENT INFO. [facility] SIGNED BY PT AND INFO FAXED, AWAITING CALL BACK.
[2019-07-21 08:57] LABS: HEMATOCRIT 27.4 % (36-48); MEAN CORPUSCULAR HEMOGLOBIN 26.5 pg (27.0-33.0); MEAN CORPUSCULAR HGB CONC 30.7 g/dL (32.0-36.0); MEAN CORPUSCULAR VOLUME 86.4 fL (79-99); NUCLEATED RED BLOOD CELLS 0.4 % (0.0-0.19); RED BLOOD CELL COUNT(AUTO) 3.17 MIL/uL (4.00-5.50); RED CELL DISTRIBUTION WIDTH 22.1 % (11.0-15.5)
[2019-07-21 09:20] LABS: CREATININE 1.7 mg/dL (0.5-1.5); POTASSIUM 3.1 mmol/L (3.5-5.1)
--- NOTE | 2019-07-21 10:27 | NUR ---
TRANSFER RECEIVED A CALL FROM [facility] DAVID, STATING THAT THE TRANSFER WILL WAIT TILL TOMORROW SINCE THEY DON'T HAVE GI TECHNOLOGIST INFECTIOUS DISEASE THIS WEEKEND.
--- NOTE | 2019-07-21 14:00 | NUR ---
STILL AWAITING TO HERE FROM [facility] ABOUT PT BEING TRANSFERRED BACK TO [facility]. SODA FOUNTAIN OPERATOR WORKING ON TRANSFER.
--- NOTE | 2019-07-21 15:30 | NUR ---
DR. MILLER HERE AND DID THORACENTESIS ON PATIENTS RIGHT LUNG AND OBTAINED 1950 CC OF CLEAR YELLOW PLEURAL FLUID. FLUID WAS SENT TO LAB FOR STUDIES ORDERED PER DR. MILLER. PT TOLERATED PROCEDURE AND STATES THAT IT IS EASIER FOR HER TO BREATH.
--- NOTE | 2019-07-21 17:10 | NUR ---
RADIOLOGY CALLED TO ADVISE NURSING STAFF THAT A SMALL PNEUMOTHORAX WAS NOTED AFTER THE THORACENTESIS. DR. MILLER WAS ADVISED AND ORDER NOTED.
[2019-07-21 18:16] LABS: ALBUMIN,BODY FLUID 0.6 g/dL
[2019-07-21 19:09] LABS: APPEARANCE BODY FLUID CLEAR (CLEAR); COLOR,BODY FLUID YELLOW (LT YELLOW); SPECIMENTYPE,BODY FLUID PLEURAL; TOTAL VOLUME,BODY FLUID 24 mL
[2019-07-21 19:13] LABS: BODY FLUID RBC 296 /cu. mm.; BODY FLUID WBC 10 /cu. mm.
[2019-07-21 19:30] LABS: BF LYMPHOCYTE 23 %; BF MONOCYTE 7 %; BF OTHER CELLS 30
[2019-07-21] MEDS: ATORVASTATIN CALCIUM 20 MG TABLET PO SCH (21:30)
[2019-07-22] MEDS ORDERED: TRAMADOL HCL 50 MG TABLET PO PRN ×2 (04:00)
[2019-07-22] MEDS ORDERED: TRAMADOL HCL 50 MG TABLET ONE (04:06)
[2019-07-22 04:14] VITALS: BP 146/55
[2019-07-22] MEDS: ONDANSETRON HCL 4 MG/2 ML VIAL IVP PRN (04:14)
[2019-07-22 04:52] LABS: HEMATOCRIT 27.8 % (36-48); MEAN CORPUSCULAR HEMOGLOBIN 27.3 pg (27.0-33.0); MEAN CORPUSCULAR HGB CONC 30.9 g/dL (32.0-36.0); MEAN CORPUSCULAR VOLUME 88.3 fL (79-99); NUCLEATED RED BLOOD CELLS 0.6 % (0.0-0.19); RED BLOOD CELL COUNT(AUTO) 3.15 MIL/uL (4.00-5.50); RED CELL DISTRIBUTION WIDTH 22.3 % (11.0-15.5); WHITE BLOOD COUNT (AUTO) 8.1 K/uL (4.8-10.8)
[2019-07-22 05:09] LABS: CREATININE 1.6 mg/dL (0.5-1.5); POTASSIUM 3.3 mmol/L (3.5-5.1)
[2019-07-22] MEDS: METRONIDAZOLE 500 MG TABLET PO SCH (05:13)
[2019-07-22] MEDS: PANTOPRAZOLE SODIUM 40 MG TABLET.DR PO SCH (05:17)
[2019-07-22] MEDS: INSULIN HUMULIN R 100 UNIT/ML 3ML SQ SCH (05:21)
--- NOTE | 2019-07-22 06:22 | NUR ---
0600: REPORT CALLED TO GUERO GONZALEZ AT [facility]. PATIENT TO GO TO ROOM 510. [facility] MADE AWARE OF TRANSFER. PATIENT AWARE AND CONSENTS TO TRANSFER. NEXT OF KIN, ARUNA GORDON, CALL ATTEMPTED X2 TO NOTIFY OF TRANSFER WITH NO ANSWER.
--- NOTE | 2019-07-22 06:36 | NUR ---
0630: [facility] AT BEDSIDE. PATIENT TRANSFERRED TO [facility]. PATIENT BELONGINGS DELIVERED TO EMS STAFF, CELLPHONE AND ENVIRONMENTAL DESIGNER PLUS PATIENTS PURSE, ALONG WITH CLOTHING IN PATIENT BELONGING BAG. PATIENT VERBALIZED UNDERSTANDING OF TRANSFER
== END 2019-07-22 06:30 | disposition short-term general hospital (02) | DRG 246 ==
LOC: 4BH 14:52 → 2CH 07-18 06:28 → 4DH 07-21 18:14
PROVIDERS: ADMIT Internal Medicine; ATTEND Internal Medicine
PROC: 027034Z Dilation of Coronary Artery, One Artery with Drug-eluting Intraluminal Device, Percutaneous Approach (ICD-10-PCS; principal; 2019-07-11)
PROC: 4A023N7 Measurement of Cardiac Sampling and Pressure, Left Heart, Percutaneous Approach (ICD-10-PCS; 2019-07-11)
PROC: B2111ZZ Fluoroscopy of Multiple Coronary Arteries using Low Osmolar Contrast (ICD-10-PCS; 2019-07-11)
PROC: B2151ZZ Fluoroscopy of Left Heart using Low Osmolar Contrast (ICD-10-PCS; 2019-07-11)
PROC: 0JB70ZZ Excision of Back Subcutaneous Tissue and Fascia, Open Approach (ICD-10-PCS; 2019-07-18)
PROC: 5A12012 Performance of Cardiac Output, Single, Manual (ICD-10-PCS; 2019-07-18)
PROC: 5A1945Z Respiratory Ventilation, 24-96 Consecutive Hours (ICD-10-PCS; 2019-07-18)
PROC: 0BH17EZ Insertion of Endotracheal Airway into Trachea, Via Natural or Artificial Opening (ICD-10-PCS; 2019-07-18)
PROC: 0W993ZZ Drainage of Right Pleural Cavity, Percutaneous Approach (ICD-10-PCS; 2019-07-18)
DX: I21.4 Non-ST elevation (NSTEMI) myocardial infarction (principal); L89.154 Pressure ulcer of sacral region, stage 4; L89.314 Pressure ulcer of right buttock, stage 4; I50.43 Acute on chronic combined systolic (congestive) and diastolic (congestive) heart failure; J96.21 Acute and chronic respiratory failure with hypoxia; E43 Unspecified severe protein-calorie malnutrition; I46.9 Cardiac arrest, cause unspecified; I13.0 Hypertensive heart and chronic kidney disease with heart failure and stage 1 through stage 4 chronic kidney disease, or unspecified chronic kidney disease; N17.9 Acute kidney failure, unspecified; E11.52 Type 2 diabetes mellitus with diabetic peripheral angiopathy with gangrene; I31.3 Pericardial effusion (noninflammatory); K80.10 Calculus of gallbladder with chronic cholecystitis without obstruction; N18.4 Chronic kidney disease, stage 4 (severe); R64 Cachexia; I25.5 Ischemic cardiomyopathy; D50.9 Iron deficiency anemia, unspecified; E11.22 Type 2 diabetes mellitus with diabetic chronic kidney disease; E11.649 Type 2 diabetes mellitus with hypoglycemia without coma; E78.5 Hyperlipidemia, unspecified; E87.6 Hypokalemia; G47.00 Insomnia, unspecified; I25.110 Atherosclerotic heart disease of native coronary artery with unstable angina pectoris; K59.00 Constipation, unspecified; K76.0 Fatty (change of) liver, not elsewhere classified; L89.109 Pressure ulcer of unspecified part of back, unspecified stage; Z68.23 Body mass index [BMI] 23.0-23.9, adult; W19.XXXA Unspecified fall, initial encounter; Y93.89 Activity, other specified; Y92.89 Other specified places as the place of occurrence of the external cause; Y99.8 Other external cause status; Z79.02 Long term (current) use of antithrombotics/antiplatelets; I25.2 Old myocardial infarction; Z74.01 Bed confinement status; Z79.82 Long term (current) use of aspirin; Z79.899 Other long term (current) drug therapy; Z87.81 Personal history of (healed) traumatic fracture; Z99.81 Dependence on supplemental oxygen
CPT/HCPCS: 31500; 36415; 36600; 70450; 71045; 76705; 78580; 80048; 80053; 82042; 82150; 82435; 82550; 82803; 82945; 82947; 82948; 83540; 83550; 83605; 83615; 83690; 83735; 83874; 83880; 84100; 84132; 84145; 84157; 84295; 84443; 84484; 85018; 85025; 85027; 85045; 85610; 85651; 85730; 86140; 87070; 87071; 87076; 87077; 87186; 87205; 89051; 92950; 93005; 93306; 93356; 93458; 93970; 94002; 94003; 97039; 99156; 99157; A6250; A9540; C1729; C1760; C1769; C1887; C1894; C9113; C9600; G0378; J0330; J0583; J0885; J1327; J1644; J1650; J1756; J1940; J2185; J2250; J2405; J2543; J2704; J3370; J3490; J7050; J7070; Q9967